=== PATIENT | male | born 1940 | race Caucasian/White ===

== ENCOUNTER 2021-11-21 09:04 | Outpatient (CLI) | payer MEDICARE, OTHER, SELFPAY ==
--- NOTE | 2021-11-21 09:00 | CRLHL7_ITS ---
For Patients: As a result of the Century Cures Act, medical imaging exams and procedure reports are released immediately into your electronic medical record. You may view this report before your referring provider. If you have questions, please contact your health care provider. INDICATION: Parkinson`s COMPARISON: none TECHNIQUE: A CT volumetric acquisition was performed of the brain without IV contrast. Please note that all CT scans at this facility use dose modulation, iterative reconstruction, and/or weight-based dosing when appropriate to reduce radiation dose to as low as reasonably achievable. FINDINGS: The CT images reveal a normal appearance of the cerebral ventricles and basal cisterns. There is no evidence of intracranial hemorrhage, tissue infarction or mass effect. The mastoid air cells and middle ear cavities are clear. The calvarium appears intact. There is normal aeration of the visualized paranasal sinuses. Leftward curvature of the nasal septum. Left-sided nasal septal spur. IMPRESSION: Negative head CT. Please note that all CT scans at this facility use dose modulation, iterative reconstruction, and/or weight-based dosing when appropriate to reduce radiation dose to as low as reasonably achievable. Dictated by Rios Leigh MD @ 11/21/2021 10:06:19 AM (Electronically Signed)
== END 2021-11-21 09:05 | disposition home or self-care (01) ==
LOC: CT 09:07
PROVIDERS: PCP Family Medicine
DX: G20 Parkinson's disease (principal)
CPT/HCPCS: 70450

== ENCOUNTER 2021-12-03 10:09 | Outpatient (CLI) | payer MEDICARE, OTHER, SELFPAY ==
[2021-12-03 14:28] LABS: Chloride* 103 mmol/L (96-114); Potassium* 4.8 mmol/L (3.6-5.1); Sodium* 137 mmol/L (135-149)
[2021-12-03 14:31] LABS: Blood Urea Nitrogen* 21 mg/dL (7-30); Carbon Dioxide* 26 mmol/L (20-32); Cholesterol* 100 mg/dL (90-199); Creatinine* 0.7 mg/dL (0.5-1.5); Estimated Glomerular Filt Rate 91 ml/min; Glucose* 99 mg/dL (60-115); Triglycerides* 48 mg/dL (40-149)
[2021-12-03 14:32] LABS: HDL Cholesterol* 53 mg/dL (>=40); LDL Cholesterol Calculated 37 mg/dL (<100)
[2021-12-03 14:59] LABS: PSA Diagnostic* 2.99 ng/mL (0.10-4.00)
== END 2021-12-03 10:10 | disposition home or self-care (01) ==
PROVIDERS: PCP Family Medicine; Visit Provider Family Medicine
DX: Z00.00 Encounter for general adult medical examination without abnormal findings (principal); E78.5 Hyperlipidemia, unspecified; C61 Malignant neoplasm of prostate; Z13.1 Encounter for screening for diabetes mellitus
CPT/HCPCS: 80048; 80061; 84153

== ENCOUNTER 2022-05-22 14:14 | Outpatient (CLI) | payer MEDICARE, SELFPAY | END 2022-05-22 14:15 | disposition home or self-care (01) | LOC: LONREF 14:15 | PROVIDERS: PCP Family Medicine; Visit Provider Family Medicine | DX: Z01.818 Encounter for other preprocedural examination (principal) | CPT/HCPCS: 80048 ==

== ENCOUNTER 2022-05-27 09:34 | Outpatient (CLI) | payer MEDICARE, SELFPAY ==
[2022-05-27 14:38] LABS: SARS PCR* Negative SARS-CoV-2 (Negative)
== END 2022-05-27 09:35 | disposition home or self-care (01) ==
LOC: LONREF 09:34
PROVIDERS: PCP Family Medicine; Visit Provider Family Medicine
DX: Z20.822 Contact with and (suspected) exposure to COVID-19 (principal); Z01.818 Encounter for other preprocedural examination
CPT/HCPCS: 87635

== ENCOUNTER 2022-12-23 08:06 | Outpatient (CLI) | payer MEDICARE, OTHER, SELFPAY | END 2022-12-23 08:07 | disposition home or self-care (01) | PROVIDERS: PCP Family Medicine; Visit Provider Family Medicine | DX: E78.5 Hyperlipidemia, unspecified (principal); C61 Malignant neoplasm of prostate | CPT/HCPCS: 80061; 84153 ==

== ENCOUNTER 2023-08-25 09:59 | Emergency (ER) | payer MEDICARE, OTHER, SELFPAY ==
[2023-08-25 10:02] VITALS: BP 123/56; PULSE 64; RESP 16; TEMP 36.8; O2SAT 99; BMI 26.6
--- NOTE | 2023-08-25 10:19 | ED_ITS ---
HPI - General Adult General Chief complaint: Abdominal Pain Stated complaint: constipation, stomach pain Time Seen by Provider: 08/25/23 10:18 History of Present Illness HPI narrative: patient has Parkinson's and fell 2 weeks ago and noted a bruise on the side right side RLQ. think fractured 2 ribs. has not been able to poop and poor appetite. 4 days for last BM and stomach hurts and eating raspberry Jello and some Mac and Cheese. taken Miralax and a lot of other things to help in this area. 83-year-old man presenting to the emergency department with concern abdominal pain. Underlying history of Parkinson's. All to maybe 3 weeks ago and they noted a bruise on the right lower anterolateral chest where they think probably had fractured ribs. Not been having trouble breathing. Increased burning pain in the epigastrium as demonstrated. Does take Prilosec with a history of GERD. Does struggle with constipation bed enough for GI to initiate Linzess which was done about 3 weeks ago. Discontinued for 5 days ago with this burning and familiar pain though thought that it might be related to Linzess. Has not had a bowel movement for at least 4 days. No fever. Is passing gas. Is not vomiting but a little nauseated right now. What was of concern also is that bruise settled up below the area of injury in the right side though was noted 2 or 3 weeks later and thought maybe this is surprisingly late. Does have a history of spastic bladder as well and BPH and prostate cancer. Have been taking MiraLax over the last few days. Has been passing gas. Related Data Home Medications ?Medication ?Instructions ?Recorded ?Confirmed acalabrutinib 100 mg capsule 100 mg PO BID 10/02/21 08/25/23 (Calquence) carbidopa ER 50 mg-levodopa 200 mg 1 tab PO TID 10/02/21 08/25/23 tablet,extended release cetirizine 10 mg tablet 10 mg PO DAILY 10/02/21 08/25/23 multivitamin (Multiple Vitamins 1 tab PO QAM 10/02/21 07/08/23 tablet) Previous Rx's ?Medication ?Instructions ?Recorded citalopram 20 mg tablet 20 mg PO DAILY #90 tabs 12/23/22 finasteride 5 mg tablet 5 mg PO DAILY #90 tabs 10/09/23 oxybutynin chloride 5 mg tablet 5 mg PO QDAY #90 tabs 12/23/22 simvastatin 40 mg tablet 40 mg PO .Bedtime #90 tabs 12/23/22 tamsulosin 0.4 mg capsule 0.4 mg PO DAILY #90 caps 12/23/22 linaclotide 72 mcg capsule 72 mcg PO QAM #30 caps 05/30/23 (Linzess) omeprazole 20 mg capsule,delayed 20 mg PO QDAY #90 caps 06/30/23 release tramadol 50 mg tablet See Rx Instructions PO Q6H PRN 07/08/23 pain #40 tabs Allergies Allergy/AdvReac Type Severity Reaction Status Date / Time celecoxib Allergy Mild Hives Verified 08/25/23 10:10 Review of Systems Status of ROS: Reports: 6 or more systems reviewed and unremarkable except as noted in History and below PFSH PFS Surgical History Status post tonsillectomy and adenoidectomy ?Z90.89 - Acquired absence of other organs (ICD-10) Status post right inguinal hernia repair ?Z98.890 - Other specified postprocedural states (ICD-10) ?Z87.19 - Personal history of other diseases of the digestive system (ICD-10) Status post left hip replacement ?Z96.642 - Presence of left artificial hip joint (ICD-10) History of excision of lamina of lumbar vertebra for decompression of spinal cord ?Z98.890 - Other specified postprocedural states (ICD-10) History of arthroscopy of left shoulder ?Z98.890 - Other specified postprocedural states (ICD-10) Social History Narrative: screening for colon cancer- colonoscopy completed on 02/18/19, repeat in 5 years, next due 02/19/24 What is your current living situation?: I presently have a place to live Problems where you live: no known problems In the past 12 months, utilities in danger of being shut off: no In past 12 months, lack of transportation kept you from medical appts, meetings, work, or getting things needed for daily living: no In the past 12 mos, have been you worried that your food would run out before you had money to buy more?: never true In the past 12 mos, the food you bought just didn't last and you didn't have money to buy more?: never true Smoking Status: Never smoker How often does anyone, including family, friends and others, physically hurt you : never How often does anyone, including family, friends and others, insult or talk down to you: never How often does anyone, including family, friends and others, threaten you with harm: never How often does anyone, including family, friends and others, scream or curse at you: never Little interest or pleasure in doing things: not at all Feeling down, depressed, or hopeless: not at all Exam Narrative: Exam Narrative: Pleasant. NAD. Only during exam did I appreciate him to be mildly tachypneic. This settled again when not actually auscultating. Head is atraumatic. Pain to palpation over the back or SI joints. No flank tenderness to percussion. Lungs are clear with breath sounds throughout. Is not splinting. Tender at the right anterolateral lower ribs consistent with some small patch of bruising here. I do not appreciate defect. In the right mid abdomen there is a patch of bruising as well. No hematoma appreciated otherwise. Abdomen is generally soft and appears to be nontender until in palpating in the epigastrium. Bowel sounds are present. No masses appreciated. Lower extremities with left greater than right 1 to 2+ pitting edema. This reportedly is chronic. Well-perfused otherwise. Moving all extremities without difficulty. Hunched over a little bit and moves generally carefully. Has a cane standing by. Const: Vital Signs, click to edit/add: Vital Signs - 24 hr 08/25/23 10:02 Temperature 98.3 F Pulse Rate [Pulse Oximeter] 64 Respiratory Rate 16 Blood Pressure [Ri ght Upper Arm] 123/56 L Pulse Oximetry 99 Oxygen Delivery Me thod Room Air Documenting provider has reviewed patient's vital signs: yes Course Vital Signs Vital signs: Initial Vital Signs Temperature 98.3 F 08/25/23 10:02 Temperature Source Temporal Artery Scan 08/25/23 10:02 Pulse Rate 64 08/25/23 10:02 Respiratory Rate 16 08/25/23 10:02 Blood Pressure 123/56 L 08/25/23 10:02 Blood Pressure Mean 78 08/25/23 10:02 Blood Pressure Position Sitting 08/25/23 10:02 Pulse Oximetry 99 08/25/23 10:02 Oxygen Delivery Method Room Air 08/25/23 10:02 Vital Signs Temperature 98.3 F 08/25/23 10:02 Pulse Rate 64 08/25/23 10:02 Respiratory Rate 16 08/25/23 10:02 Blood Pressure 123/56 L 08/25/23 10:02 Pulse Oximetry 99 08/25/23 10:02 Oxygen Delivery Method Room Air 08/25/23 10:02 Temperature 98.3 F 08/25/23 10:02 Pulse Rate 64 08/25/23 10:02 Respiratory Rate 16 08/25/23 10:02 Blood Pressure 123/56 L 08/25/23 10:02 Pulse Oximetry 99 08/25/23 10:02 Oxygen Delivery Method Room Air 08/25/23 10:02 Medications Administered Medications: Discontinued Medications Generic Name Dose Route Start Last Admin Trade Name Freq PRN Reason Stop Dose Admin Sodium Chloride 500 mls @ 500 mls/hr 08/25/23 10:32 08/25/23 12:01 0.9 % Sodium Chloride 500 Ml IV 08/25/23 11:31 Infused .Q1H ONE Infusion Lidocaine 1 patch 08/25/23 10:36 08/25/23 10:45 Lidocaine 5% Patch TRANSDERMA 08/25/23 10:37 1 patch ONCE ONE Administration Protocol Lidocaine/Aluminum/Magnesium/Simeth 30 ml 08/25/23 10:32 08/25/23 11:05 Gi Cocktail (Visc Lido/Antacid) 30 Ml PO 08/25/23 10:33 30 ml ONCE ONE Administration Ondansetron HCl 4 mg 08/25/23 10:32 08/25/23 11:05 Ondansetron 2 Mg/Ml Inj IVP 08/25/23 10:33 4 mg ONCE ONE Administration Medical Decision Making MDM Narrative Medical decision making narrative: Abdomen generally appears to be benign. Likely constipation and contributing to symptoms here today. Place a lidocaine patch the right side. I am not sure that imaging would benefit provided labs are normal. Will check liver enzymes if labs in general are off would consider more extensive imaging. I do not think this is likely a large hematoma intra-abdominally that is mobilized. Abdomen otherwise is benign. Check for degree of constipation. Trial of GI cocktail. One-view abdominal x-ray reviewed by me does not show any obstructive pattern. There is moderate plus stool throughout the abdomen. I do not see any displaced rib fracture that would have contributed to liver injury in the area of the bruise. On reassessment as far as the epigastric burning symptoms go, is back to normal; resolved. Reviewing that has been taking 20 mg of Prilosec for years. Does have famotidine available and can be helpful last taken about 4 days ago. Discussed with pharmacy that while possible, not terribly likely that Linzess would contribute to this burning in his epigastrium. Urinalysis returns with nitrite positive urine and otherwise bilirubin which I would attribute to mobilization of the hematoma likely present prior. Total bili is also elevated and looks to be primarily indirect. Renal function looks good. Transaminases are normal. Reviewing symptoms again emphasis is made of weakness. With normal hemoglobin upon review of records and baseline, as well I wonder if this nitrite positive urine is actually significant in spite of no red or white cells identified on microscopy. Perhaps it would be prudent to treat. See patient discharge plan for further discussion/plan Medical Records Medical records reviewed: Yes I reviewed the patient's medical records Lab Data Lab results reviewed: Yes I reviewed the patient's lab results Labs: Lab Results 08/25/23 08/25/23 Range/Units 10:35 11:01 WBC 4.50 (4.50-11.00) K/uL RBC 3.84 L (4.30-5.90) m/uL Hgb 12.4 L (13.5-17.5) gm/dL Hct 38.8 (37.0-53.0) % MCV 101 H (80-100) fL MCH 32 (26-34) pg MCHC 32 (32-36) gm/dL RDW Coeff of John 12.6 (11.5-15.5) % Plt Count 76 L (140-440) K/uL Neut % (Auto) 46.0 (42.0-72.0) % Lymph % (Auto) 44.9 H (20-44) % [place] % (Auto) 8.7 (0.0-11.0) % Eos % (Auto) 0.4 (0.0-7.0) % Baso % (Auto) 0.0 (0.0-3.0) % Neut # (Auto) 2.07 (1.7-7.0) K/uL Lymph # (Auto) 2.00 (0.90-2.90) K/uL [place] # (Auto) 0.40 (0.00-0.90) K/UL Eos # (Auto) 0.02 (0.00-0.50) K/uL Baso # (Auto) 0.00 (0.00-0.30) K/uL Abs Immat Gran (auto) 0.00 (0.00-0.30) K/uL Imm/Tot Granulo (auto) 0.0 % Sodium 135 (135-149) mmol/L Potassium 4.7 (3.6-5.1) mmol/L Chloride 102 (96-114) mmol/L Carbon Dioxide 29 (20-32) mmol/L Anion Gap 4 L (7-15) mEq/L BUN 20 (7-30) mg/dL Creatinine 0.5 (0.5-1.5) mg/dL Estimated Creat Clear 46.98 Estimated GFR 100 ml/min Glucose 96 (60-115) mg/dL Calcium 8.8 (8.4-10.6) mg/dL Total Bilirubin 3.1 H (0.1-1.5) mg/dL Direct Bilirubin 0.3 (0.0-0.5) mg/dL AST 19 (12-35) U/L ALT 5 (4-50) U/L Alkaline Phosphatase 91 (40-150) U/L C-Reactive Protein < 0.5 L (0.5-1.0) mg/dL Total Protein 6.5 (6.0-8.3) g/dL Albumin 4.8 (3.3-5.0) g/dL Urine Color Brown A (Yellow) Urine Appearance Clear (Clear) Urine pH 6.5 (5.0-8.5) Ur Specific [place] >= 1.030 (1.000-1.030) Urine Protein Trace A (Negative) Urine Glucose (UA) Negative (Negative) Urine Ketones 1+ A (Negative) Urine Blood Negative (Negative) Urine Nitrite Positive A (Negative) Urine Bilirubin Negative (Negative) Urine Urobilinogen >=8.0 A (0.2-1.0) Ur Leukocyte Esterase Negative (Negative) Urine RBC 0-2 (0-2) Urine WBC 0-2 (0-5) Ur Squamous Epith Cells None (None-Few) Urine Bacteria Few A (None) Discharge Plan Discharge Clinical Impression: Constipation, Dyspepsia, Chronic GERD, Contusion, Weakness Patient Disposition: Home w/ Parent or Adult Condition: Stable Additional Instructions: As discussed, nitrate in urine is often an infection until proven otherwise. This combined with your weakness is concerning for potential urinary tract infection. It seems prudent to initiate antibiotics pending urine culture results. Cephalexin from [facility]. In the meantime, stay well-hydrated. I would increase your MiraLax dosing to 2- 3 doses a day perhaps. If you are having hard stool/straining had stool consider placing an enema repeating an hour if no good result or at least placing a suppository overnight. I would restart your Linzess at this time. Radiology has had a look at your x-ray and agree with moderate stool being present but no other acute findings. Consider taking famotidine daily as discussed over the next week or 2. For breakthrough epigastric burning, might try also taking Pepto or other antacid/anti-gas liquid. Return/be seen for a increasing persistent weakness, marked increase in persistent abdominal pain, fever. Follow-up in clinic tomorrow as planned. If you think this lidocaine patch is helpful, can purchase more [id number]. Prescriptions: No Action carbidopa-levodopa 50-200 mg tablet extended release 1 tab PO TID cetirizine 10 mg tablet 10 mg PO DAILY multivitamin [Multiple Vitamins] Tablet 1 tab PO QAM Calquence 100 mg capsule 100 mg PO BID tramadol 50 mg tablet See Rx Instructions PO Q6H PRN (Reason: pain) Qty: 40 1RF Rx Instructions: 1-2 tabs Q6H prn orally every 6 hours PRN; simvastatin 40 mg tablet 40 mg PO .Bedtime Qty: 90 3RF oxybutynin chloride 5 mg tablet 5 mg PO QDAY Qty: 90 3RF tamsulosin 0.4 mg capsule 0.4 mg PO DAILY Qty: 90 3RF citalopram 20 mg tablet 20 mg PO DAILY Qty: 90 3RF finasteride 5 mg tablet 5 mg PO DAILY Qty: 90 3RF Linzess 72 mcg capsule 72 mcg PO QAM Qty: 30 5RF Hold Instructions: burning in stomach..stopped 3 days ago omeprazole 20 mg capsule,delayed release(DR/EC) 20 mg PO QDAY Qty: 90 3RF Follow Up/Referrals: Terrell Conner MD [Primary Care Provider] - Stand Alone Forms: [facility] Info Instructions
--- NOTE | 2023-08-25 10:34 | CRLHL7_ITS ---
For Patients: As a result of the Cures Act, medical imaging exams and procedure reports are released immediately into your electronic medical record. You may view this report before your referring provider. If you have questions, please contact your health care provider. Indication: Stomach pain and constipation Technique: Abdomen 1 view, 2 films Comparison: None Findings/Impression: Bowel: No definite evidence of obstruction with a moderate amount of stool within the colon. Soft tissues: Multiple phleboliths within the pelvis and soft tissues. Bones: Status post left hip replacement with mild adjacent heterotopic ossification. Dictated by Manpreet Davalos MD @ 08/25/2023 12:34:00 PM (Electronically Signed)
[2023-08-25] MEDS: LIDOCAINE 5% PATCH 1 PATCH TRANSDERMA (10:45)
[2023-08-25 10:57] LABS: Appearance Urine Clear (Clear); Bilirubin Urine Negative (Negative); Blood Urine Negative (Negative); Color Urine Brown (Yellow); Glucose Urine Negative (Negative); Ketones Urine 1+ (Negative); Leukocyte Esterase Urine Negative (Negative); Nitrite Urine Positive (Negative); Protein Urine Trace (Negative); Specific Gravity Urine >= 1.030 (1.000-1.030); Urobilinogen Urine >=8.0 (0.2-1.0); pH Urine 6.5 (5.0-8.5)
[2023-08-25] MEDS: ONDANSETRON 2 MG/ML inj 4 MG IVP (11:05)
[2023-08-25] MEDS: GI COCKTAIL (VISC LIDO/ANTACID) 30 ML PO (11:05)
[2023-08-25] MEDS: 0.9 % SODIUM CHLORIDE 500 ML 500 ML IV (11:05)
[2023-08-25 11:09] LABS: Eosinophils Absolute Auto 0.02 K/uL (0.00-0.50); Eosinophils Percent Auto 0.4 % (0.0-7.0); Hematocrit 38.8 % (37.0-53.0); Hemoglobin* 12.4 gm/dL (13.5-17.5); Lymphocytes Percent Auto 44.9 % (20-44); Mean Corpuscular HGB Conc 32 gm/dL (32-36); Mean Corpuscular Hemoglobin 32 pg (26-34); Mean Corpuscular Volume 101 fL (80-100); Monocytes Percent Auto 8.7 % (0.0-11.0); Neutrophils Absolute Auto 2.07 K/uL (1.7-7.0); Platelet Count* 76 K/uL (140-440); RDW Coefficient of Variation % 12.6 % (11.5-15.5); Red Blood Count 3.84 m/uL (4.30-5.90)
[2023-08-25 11:11] LABS: Slide Review Reflex No
[2023-08-25 11:23] LABS: Chloride* 102 mmol/L (96-114); Potassium* 4.7 mmol/L (3.6-5.1); Sodium* 135 mmol/L (135-149)
[2023-08-25 11:24] LABS: Albumin* 4.8 g/dL (3.3-5.0)
[2023-08-25 11:26] LABS: Creatinine* 0.5 mg/dL (0.5-1.5); Est. Creatinine Clearance* 46.98; Estimated Glomerular Filt Rate 100 ml/min
[2023-08-25 11:27] LABS: Alkaline Phosphatase* 91 U/L (40-150); Anion Gap 4 mEq/L (7-15); Aspartate Amino Transferase* 19 U/L (12-35); Bilirubin Direct* 0.3 mg/dL (0.0-0.5); Bilirubin Total* 3.1 mg/dL (0.1-1.5); Blood Urea Nitrogen* 20 mg/dL (7-30); Calcium* 8.8 mg/dL (8.4-10.6); Carbon Dioxide* 29 mmol/L (20-32); Glucose* 96 mg/dL (60-115); Total Protein* 6.5 g/dL (6.0-8.3)
[2023-08-25 11:28] LABS: Alanine Aminotransferase* 5 U/L (4-50)
[2023-08-25 11:29] LABS: Bacteria Urine Few; RBC Urine 0-2 (0-2); WBC Urine 0-2 (0-5)
[2023-08-25 11:30] LABS: C Reactive Protein* < 0.5 mg/dL (0.5-1.0)
== END 2023-08-25 13:09 | disposition home or self-care (01) ==
PROVIDERS: Emergency Provider Family Medicine; PCP Family Medicine
DX: K59.00 Constipation, unspecified (principal); R10.13 Epigastric pain; K21.9 Gastro-esophageal reflux disease without esophagitis; S20.211A Contusion of right front wall of thorax, initial encounter; R53.1 Weakness
CPT/HCPCS: 36415; 74018; 80048; 80076; 81001; 85025; 86140; 87086; 96374; 99284; A9270; J2405; J7030

== ENCOUNTER 2023-08-26 14:37 | Outpatient (CLI) | payer MEDICARE, OTHER, SELFPAY | END 2023-08-26 14:38 | disposition home or self-care (01) | PROVIDERS: PCP Family Medicine; Visit Provider Family Medicine | DX: R63.4 Abnormal weight loss (principal); Z13.21 Encounter for screening for nutritional disorder | CPT/HCPCS: 82607; 84443 ==

== ENCOUNTER 2023-09-17 10:45 | Outpatient (RCR) | payer MEDICARE, OTHER, SELFPAY | END 2024-01-15 23:59 | disposition home or self-care (01) | PROVIDERS: PCP Family Medicine; Visit Provider Orthopaedic Surgery | DX: M48.061 Spinal stenosis, lumbar region without neurogenic claudication (principal); Z51.89 Encounter for other specified aftercare | CPT/HCPCS: 97110; 97112; 97162 ==

== ENCOUNTER 2023-11-14 13:53 | Outpatient (CLI) | payer MEDICARE, OTHER, SELFPAY ==
--- NOTE | 2023-11-14 14:00 | CRLHL7_ITS ---
For Patients: As a result of the 21st Century Cures Act, medical imaging exams and procedure reports are released immediately into your electronic medical record. You may view this report before your referring provider. If you have questions, please contact your health care provider. INDICATION: Left lower quadrant pain chronic constipation TECHNIQUE: CT abdomen and pelvis with 74 mL Isovue 370 COMPARISON: None. FINDINGS: Lower chest: Calcified hilar nodes coronary artery calcification basilar atelectasis few scattered tiny nodules example 3 millimeter left lower lobe nodule / right middle lobe granuloma a few additional micro nodules 6 millimeter perifissural nodule left lower lobe 05/11. Liver: Normal in size and attenuation. No suspicious masses. Gallbladder and bile ducts: No stones or inflammation. No biliary dilatation. Pancreas: Unremarkable. No mass or inflammation. Spleen: Splenomegaly measuring 17 cm Adrenal glands: Normal in size. No nodules. Kidneys: Too small to characterize low-attenuation lesion left kidney GI tract: Large amount of stool within the colon the bowel appears unremarkable no obstruction Vasculature: Abdominal aorta is normal in caliber. Lymph nodes: No lymphadenopathy. Peritoneum/Abdominal Wall: Unremarkable. No sign of mass or infiltration. No free air or significant free fluid. Pelvis: Minimally prominent prostate gland Bones left hip arthroplasty with streak artifact. No suspicious bony lesions. IMPRESSION: 1. Splenomegaly measuring 17 cm. No additional adenopathy seen. 2. Small pulmonary nodules micronodules measuring up to 6 millimeters lower lobes recommend follow-up per Fleischner society guidelines. 3. No acute findings abdomen or pelvis. Large amount of stool within the colon could represent constipation. FLE[employer]CH[employer] SOC[employer]ETY GUIDELINES - SOLID NODULES: SINGLE LOW RISK - nodule less than 6 mm: No routine follow-up. - nodule 6-8 mm: CT at 6-12 months, then consider CT at 18-24 months. - nodule greater than 8 mm: Consider CT at 3 months, PET/CT or tissue sampling. SINGLE HIGH RISK - nodule less than 6 mm: Optional CT at 12 months. - nodule 6-8 mm: CT at 6-12 months, then CT at 18-24 months. - nodule greater than 8 mm: Consider CT at 3 months, PET/CT or tissue sampling. MULTIPLE LOW RISK - nodule less than 6 mm: No routine follow-up. - nodule 6-8 mm: CT at 3-6 months, then consider CT at 18-24 months. - nodule greater than 8 mm: CT at 3-6 months, then consider CT at 18-24 months. MULTIPLE HIGH RISK - nodule less than 6 mm: Optional CT at 12 months. - nodule 6-8 mm: CT at 3-6 months, then at 18-24 months. - nodule greater than 8 mm: CT at 3-6 months, then at 18-24 months. Please note that all CT scans at this facility use dose modulation, iterative reconstruction, and/or weight-based dosing when appropriate to reduce radiation dose to as low as reasonably achievable. Dictated by Emilia Palomares MD @ 11/17/2023 1:24:01 PM (Electronically Signed)
[2023-11-14 14:36] LABS: Creatinine* 0.7 mg/dL (0.5-1.5); Estimated Glomerular Filt Rate 90 ml/min
== END 2023-11-14 13:54 | disposition home or self-care (01) ==
LOC: CT 13:54
PROVIDERS: PCP Family Medicine
DX: R10.32 Left lower quadrant pain (principal); R16.1 Splenomegaly, not elsewhere classified; R91.8 Other nonspecific abnormal finding of lung field
CPT/HCPCS: 36415; 74177; 82565; Q9967

== ENCOUNTER 2024-12-24 12:13 | Emergency (ER) | payer MEDICARE, OTHER, SELFPAY ==
[2024-12-24 12:15] VITALS: BP 121/68; PULSE 65; RESP 18; TEMP 36.2; O2SAT 96; BMI 28.3
--- NOTE | 2024-12-24 12:37 | ED.GENADULT ---
HPI - General Adult General Chief complaint: Back Injury/Pain Stated complaint: Lower back pain Time Seen by Provider: 12/24/24 12:23 History of Present Illness HPI narrative: Patient presents to the emergency department complaining of back pain. Patient states this has been going on for about 2 weeks. Patient has been seen for this and was given tramadol which has not provided any relief. Pain is in the middle of his back. 84-year-old man presenting to the emergency departmentWith concern of flare of low back pain. Nonradicular. Does also have prostate cancer treated with cryotherapy. Was seen 2 days ago in clinic and received a refill of tramadol. Changes his relief flared to an intolerable level over the last couple of days. The tramadol has not helped. Any transition causes a great deal of pain. History of low level lumbar spondylolisthesis. Nonradiating pain. History of partial laminectomy. Included here is 2019 lumbar MRI. See below. 06/02/2019 lumbar MRI EXAM: MR LUMBAR SPINE WITHOUT CONTRAST 1.5T CLINICAL INFORMATION: 78 years old Male with Parkinson's disease, bilateral leg weakness TECHNICAL INFORMATION: T1, T2, and STIR sagittal, coronal T2 and T1 and T2 axial sections at selected levels. Contrast: None. Sedation: None. COMPARISON/CORRELATION: None. DIAGNOSTIC IMAGING REPORT MR NUMBER: [id number] PT NAME: LORNEJINNY Amira GAYB: 1940 MD: Rony Correia DO DATE: Draft REG CLI cc: Rony Correia DO; Nathen Conner MD~ INTERPRETATION: Numbering: Last fully formed disc space is designated L5-S1. Spinal Cord: The distal cord and conus demonstrates normal signal, terminating at L1. Bones: No acute fracture or osseous destructive lesion. No spondylolysis. Marrow signal is within normal limits. Soft tissues: Moderate to marked diffuse dorsal paraspinal muscular fatty infiltration/atrophy. Moderate partially imaged gluteal muscular fatty infiltration/atrophy. L5-S1: Mild disc degeneration, annular bulge and moderate left greater than right facet degeneration. No central stenosis. Mild left subarticular and right foraminal stenosis with a right foraminal directed 4 mm synovial cyst without neural impingement. L4-5: Moderate disc degeneration, grade 1 (5 mm) degenerative spondylolisthesis with moderate to advanced right greater than left facet degeneration and previous left laminotomy. Unroofing of the disc/left posterolateral to foraminal 4 to 5 mm protrusion versus granulation tissue contributing to mild central canal narrowing. Mild left subarticular stenosis without descending neural impingement. Moderate foraminal stenosis with exiting left greater than right L4 ganglionic contact/mild impingement. L3-4: Mild disc degeneration, grade 1 (2 to 3 mm) degenerative spondylolisthesis with moderate to advanced facet degeneration. Mild central stenosis without descending neural impingement. Mild left greater than right foraminal narrowing. L2-3: Mild disc degeneration, retrolisthesis and annular bulge with mild hypertrophic facet degeneration. No central stenosis. Mild subarticular and right foraminal stenosis with a right far lateral 2 to 3 mm protrusion without impingement. L1-2: Mild/moderate disc degeneration, annular bulge and mild hypertrophic facet degeneration. No central stenosis or neural impingement. Minimal foraminal narrowing. T12-L1: Moderate disc degeneration without central stenosis. DIAGNOSTIC IMAGING REPORT MR NUMBER: [id number] PT NAME: JINNY PRADHAN DOB: 1940 MD: Rony Correia DO DATE: Draft REG CLI cc: Rony Correia DO; Nathen Conner MD~ Other: No abnormality of the visualized structures. Susceptibility artifact from a left hip prosthesis. CONCLUSION: Multilevel lumbar spondylosis in lordotic alignment, previous left L4-5 laminotomy and the following specific findings: 1. L4-5 grade 1 degenerative spondylolisthesis with mild central canal narrowing and moderate left greater than right foraminal stenosis with L4 ganglionic contact/mild impingement. Small left posterolateral protrusion versus epidural fibrosis partially effacing the normal perineural fat in the left subarticular recess. This could be further evaluated with contrast-enhanced imaging if clinically indicated. 2. L3-4 grade 1 degenerative spondylolisthesis with mild central and left greater than right foraminal narrowing without neural impingement. 3. Additional hypertrophic facet degeneration without spondylolisthesis is moderate left greater than right L5-S1 and mild L2-3 and L1-2. 4. Moderate to marked dorsal paraspinal muscular fatty infiltration, which could relate to age-related cervical pain year. Other etiologies including muscular dystrophy or myopathy are less favored given the patient age in the absence of clinical history. KIMMY Related Data Home Medications ?Medication ?Instructions ?Recorded ?Confirmed acalabrutinib 100 mg capsule 100 mg PO BID 10/02/21 12/24/24 (Calquence) carbidopa ER 50 mg-levodopa 200 mg 1 tab PO TID 10/02/21 12/24/24 tablet,extended release multivitamin (Multiple Vitamins 1 tab PO QAM 10/02/21 12/24/24 tablet) furosemide 20 mg tablet 20 mg PO QAM 12/22/24 12/24/24 Previous Rx's ?Medication ?Instructions ?Recorded oxybutynin chloride 5 mg tablet 5 mg PO QDAY #90 tabs 02/11/24 omeprazole 20 mg capsule,delayed 20 mg PO QDAY #90 caps 04/29/24 release citalopram 20 mg tablet 20 mg PO DAILY #90 tabs 12/13/24 finasteride 5 mg tablet 5 mg PO DAILY #90 tabs 12/13/24 simvastatin 40 mg tablet 40 mg PO .Bedtime #90 tabs 12/13/24 tamsulosin 0.4 mg capsule 0.4 mg PO DAILY #90 caps 12/13/24 plecanatide 3 mg tablet (Trulance) 3 mg PO BID #180 tabs 12/22/24 tramadol 50 mg tablet 50 mg PO Q6H PRN pain #60 tabs 12/22/24 Allergies Allergy/AdvReac Type Severity Reaction Status Date / Time celecoxib Allergy Mild Hives Verified 12/24/24 12:19 Review of Systems Status of ROS: Reports: 6 or more systems reviewed and unremarkable except as noted in History and below [facility] Medical History Edema ?R60.9 - Edema, unspecified (ICD-10) Parkinson's disease ?G20 - Parkinson's disease (ICD-10) Chronic lymphocytic leukemia ?C91.10 - Chronic lymphocytic leukemia of B-cell type not having achieved remission (ICD-10) 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, unspecified (ICD-10) Hyperlipidemia ?E78.5 - Hyperlipidemia, unspecified (ICD-10) Obstructive sleep apnea syndrome ?G47.33 - Obstructive sleep apnea (adult) (pediatric) (ICD-10) Malignant neoplasm of prostate ?C61 - Malignant neoplasm of prostate (ICD-10) Gastroesophageal reflux disease ?K21.9 - Gastro-esophageal reflux disease without esophagitis (ICD-10) BPH (benign prostatic hyperplasia) ?N40.0 - Benign prostatic hyperplasia without lower urinary tract symptoms (ICD-10) Constipation ?K59.00 - Constipation, unspecified (ICD-10) Spastic bladder ?N32.89 - Other specified disorders of bladder (ICD-10) Spondylolisthesis, lumbar region ?M43.16 - Spondylolisthesis, lumbar region (ICD-10) Chronic back pain ?M54.9 - Dorsalgia, unspecified (ICD-10) ?G89.29 - Other chronic pain (ICD-10) Anxiety ?F41.9 - Anxiety disorder, unspecified (ICD-10) Melanoma of upper arm ?C43.60 - Malignant melanoma of unspecified upper limb, including shoulder (ICD-10) Seasonal allergic rhinitis ?J30.2 - Other seasonal allergic rhinitis (ICD-10) Pain in left thigh ?M79.652 - Pain in left thigh (ICD-10) Diverticulosis of intestine ?K57.90 - Diverticulosis of intestine, part unspecified, without perforation or abscess without bleeding (ICD-10) Adenomatous polyp of colon ?D12.6 - Benign neoplasm of colon, unspecified (ICD-10) Toe infection ?L08.9 - Local infection of the skin and subcutaneous tissue, unspecified (ICD-10) Rib fracture ?S22.39XA - Fracture of one rib, unspecified side, initial encounter for closed fracture (ICD-10) Abnormal weight loss ?R63.4 - Abnormal weight loss (ICD-10) Surgical History Status post tonsillectomy and adenoidectomy ?Z90.89 - Acquired absence of other organs (ICD-10) Status post right inguinal hernia repair ?Z98.890 - Other specified postprocedural states (ICD-10) ?Z87.19 - Personal history of other diseases of the digestive system (ICD-10) Status post left hip replacement ?Z96.642 - Presence of left artificial hip joint (ICD-10) History of excision of lamina of lumbar vertebra for decompression of spinal cord ?Z98.890 - Other specified postprocedural states (ICD-10) History of arthroscopy of left shoulder ?Z98.890 - Other specified postprocedural states (ICD-10) Social History Narrative: screening for colon cancer- colonoscopy completed on 02/18/19, repeat in 5 years, next due 02/19/24 What is your current living situation?: I presently have a place to live Problems where you live: no known problems In the past 12 months, utilities in danger of being shut off: no In past 12 months, lack of transportation kept you from medical appts, meetings, work, or getting things needed for daily living: no In the past 12 mos, have been you worried that your food would run out before you had money to buy more?: never true In the past 12 mos, the food you bought just didn't last and you didn't have money to buy more?: never true Smoking Status: Never smoker Do you use any of these nicotine containing products: None How often do you have a drink containing alcohol: 4 or more times a week How many standard drinks containing alcohol do you have on a typical day: 1 or 2 AUDIT-C Alcohol total score: 4 Non-prescribed substance use: marijuana (any form) How often does anyone, including family, friends and others, physically hurt you: never How often does anyone, including family, friends and others, insult or talk down to you: never How often does anyone, including family, friends and others, threaten you with harm: never How often does anyone, including family, friends and others, scream or curse at you: never Exam Narrative: Exam Narrative: Intermittently to sore to palpation in the mid low back/upper lumbar spine centrally. Do not see any swelling. There are some parallel well-healed vertical surgical scars consistent with prior (partial) laminectomy. Clearly extremely comfortable and hesitant to extension or to go to sitting to the bed. Otherwise breathing easily. Heart in regular rate and rhythm. Const: Vital Signs, click to edit/add: Vital Signs - 24 hr 12/24/24 12:15 12/24/24 14:01 12/24/24 15:15 Temperature 97.2 F L Pulse Rate [Right Pulse Oximeter] 65 61 61 Respiratory Rate 18 16 16 Blood Pressure [Ri ght Upper Arm] 121/68 117/62 118/55 L Pulse Oximetry 96 98 93 Oxygen Delivery Me thod Room Air Room Air Room Air Documenting provider has reviewed patient's vital signs: yes Course Vital Signs Vital signs: Initial Vital Signs Temperature 97.2 F L 12/24/24 12:15 Temperature Source Temporal Artery Scan 12/24/24 12:15 Pulse Rate 65 12/24/24 12:15 Pulse Rhythm Regular 12/24/24 12:15 Pulse Strength 3+ Normal 12/24/24 12:15 Respiratory Rate 18 12/24/24 12:15 Blood Pressure 121/68 12/24/24 12:15 Blood Pressure Mean 85 12/24/24 12:15 Blood Pressure Position Sitting 12/24/24 12:15 Pulse Oximetry 96 12/24/24 12:15 Oxygen Delivery Method Room Air 12/24/24 12:15 Vital Signs Temperature 97.2 F L 12/24/24 12:15 Pulse Rate 65 12/24/24 12:15 Respiratory Rate 18 12/24/24 12:15 Blood Pressure 121/68 12/24/24 12:15 Pulse Oximetry 96 12/24/24 12:15 Oxygen Delivery Method Room Air 12/24/24 12:15 Temperature 97.2 F L 12/24/24 12:15 Pulse Rate 61 12/24/24 15:15 Respiratory Rate 16 12/24/24 15:15 Blood Pressure 118/55 L 12/24/24 15:15 Pulse Oximetry 93 12/24/24 15:15 Oxygen Delivery Method Room Air 12/24/24 15:15 Medications Administered Medications: Discontinued Medications Generic Name Dose Route Start Last Admin Trade Name Marioq PRN Reason Stop Dose Admin Lidocaine 1 patch 12/24/24 12:59 12/24/24 13:22 Lidocaine 5% Patch TRANSDERMA 12/24/24 13:00 1 patch ONCE ONE Administration Protocol Oxycodone/Acetaminophen 2 tab 12/24/24 12:59 12/24/24 13:23 Oxycodone/Apap 5-325 Tablet PO 12/24/24 13:00 2 tab ONCE ONE Administration Medical Decision Making MDM Narrative Medical decision making narrative: Appears to been sometime since imaging has been done. No red flags but there is is history prostate cancer. Given degree of discomfort perhaps some new imaging might be beneficial. I would suspect facet arthropathy is contributing primarily to his pain. There may be new spontaneous compression fractures as well. Think x-ray imaging would be of low yield. MRI I think less indicated and I am not sure is actually available at this time. Placing lidocaine patch and given 2 tabs of Percocet. Maybe can bring his discomfort to a tolerable level and assess degree of sedation that might be present if these medications were to be taken intermittently. More concerning in the setting of Parkinson's I think On reassessment improved, transitioning easier with a lidocaine patch and 2 tabs of 5/325 Percocet. Admittedly is little tired but comfortable enough to take a nap. Does not appear to be overly sedated. I did independently review CT imaging of the lumbar spine. I do not appreciate any acute abnormality. No lytic lesions evident. Radiology over-read below INDICATION: Severe mid to lower back pain, history of prostate/skin cancers TECHNIQUE: CT lumbar spine without contrast. COMPARISON: CT abdomen and pelvis with contrast 11/14/2023, MRI lumbar spine 06/02/2019. FINDINGS: Vertebrae: Grade 1 anterolisthesis of L4 on L5. Trace anterolisthesis of L3 on L4. Mild retrolisthesis of L2 on L3 and L5 on S1. No acute fracture or suspicious osseous lesion. The bones appear demineralized. Discs and facet joints: There is multilevel degenerative disc disease greatest and moderate at L1-L2 and L2-L3 with vacuum disc phenomenon. There is severe multilevel facet arthropathy most pronounced from L3-L4 to L5-S1. Extraspinal findings: Moderate atherosclerotic calcification. Suspected splenomegaly, partially imaged. IMPRESSION: 1. No acute osseous abnormality or suspicious osseous lesion within the lumbar spine. 2. Multilevel degenerative disc disease and facet arthropathy as above. Please note that all CT scans at this facility use dose modulation, iterative reconstruction, and/or weight-based dosing when appropriate to reduce radiation dose to as low as reasonably achievable. Dictated by Aliyah Hull MD @ 12/24/2024 2:00:41 PM See patient discharge plan for further discussion I am happy you are feeling better. If you think this lidocaine patch is helpful, you can purchase more [id number]. Remember that opiates are sedating. Also can be constipating. On the days that you might be taking an opiate I would also take 1-2 tabs of senna-containing product. As discussed am providing you with some temporary Percocet from [facility]. Otherwise a prescription of prednisone as well. Either may be combined with ibuprofen or naproxen. I wonder if you might benefit from some facet injections in the future? Can discuss with Dr. Conner if that might be recommended? Dr. Nieto does them locally. Discharge Plan Discharge Clinical Impression: Acute exacerbation of chronic low back pain Patient Disposition: Home w/ Parent or Adult Condition: Improved Additional Instructions: I am happy you are feeling better. If you think this lidocaine patch is helpful, you can purchase more [id number]. Remember that opiates are sedating. Also can be constipating. On the days that you might be taking an opiate I would also take 1-2 tabs of senna-containing product. As discussed am providing you with some temporary Percocet from [facility]. Otherwise a prescription of prednisone as well. Either may be combined with ibuprofen or naproxen. I wonder if you might benefit from some facet injections in the future? Can discuss with Dr. Conner if that might be recommended? Dr. Nieto does them locally. Prescriptions: No Action carbidopa-levodopa 50-200 mg tablet extended release 1 tab PO TID multivitamin [Multiple Vitamins] Tablet 1 tab PO QAM Calquence 100 mg capsule 100 mg PO BID furosemide 20 mg tablet 20 mg PO QAM Trulance 3 mg tablet 3 mg PO BID Qty: 180 0RF tramadol 50 mg tablet 50 mg PO Q6H PRN (Reason: pain) Qty: 60 1RF oxybutynin chloride 5 mg tablet 5 mg PO QDAY Qty: 90 3RF omeprazole 20 mg capsule,delayed release(DR/EC) 20 mg PO QDAY Qty: 90 2RF tamsulosin 0.4 mg capsule 0.4 mg PO DAILY Qty: 90 0RF citalopram 20 mg tablet 20 mg PO DAILY Qty: 90 0RF simvastatin 40 mg tablet 40 mg PO .Bedtime Qty: 90 0RF finasteride 5 mg tablet 5 mg PO DAILY Qty: 90 0RF Follow Up/Referrals: Terrell Conner MD [Primary Care Provider, Family Practice] Stand Alone Forms: PR Slides Info Instructions
--- NOTE | 2024-12-24 12:59 | CRLHL7_ITS ---
For Patients: As a result of the Century Cures Act, medical imaging exams and procedure reports are released immediately into your electronic medical record. You may view this report before your referring provider. If you have questions, please contact your health care provider. INDICATION: Severe mid to lower back pain, history of prostate/skin cancers TECHNIQUE: CT lumbar spine without contrast. COMPARISON: CT abdomen and pelvis with contrast 11/14/2023, MRI lumbar spine 06/02/2019. FINDINGS: Vertebrae: Grade 1 anterolisthesis of L4 on L5. Trace anterolisthesis of L3 on L4. Mild retrolisthesis of L2 on L3 and L5 on S1. No acute fracture or suspicious osseous lesion. The bones appear demineralized. Discs and facet joints: There is multilevel degenerative disc disease greatest and moderate at L1-L2 and L2-L3 with vacuum disc phenomenon. There is severe multilevel facet arthropathy most pronounced from L3-L4 to L5-S1. Extraspinal findings: Moderate atherosclerotic calcification. Suspected splenomegaly, partially imaged. IMPRESSION: 1. No acute osseous abnormality or suspicious osseous lesion within the lumbar spine. 2. Multilevel degenerative disc disease and facet arthropathy as above. Please note that all CT scans at this facility use dose modulation, iterative reconstruction, and/or weight-based dosing when appropriate to reduce radiation dose to as low as reasonably achievable. Dictated by Aliyah Hull MD @ 12/24/2024 2:00:41 PM (Electronically Signed)
[2024-12-24] MEDS: LIDOCAINE 5% PATCH 1 PATCH TRANSDERMA (13:22)
[2024-12-24] MEDS: OxyCODONE/APAP 5-325 TABLET 2 TAB PO (13:23)
[2024-12-24 14:01] VITALS: BP 117/62; PULSE 61; RESP 16; O2SAT 98
[2024-12-24 15:15] VITALS: BP 118/55; PULSE 61; RESP 16; O2SAT 93
== END 2024-12-24 15:51 | disposition home or self-care (01) ==
PROVIDERS: Emergency Provider Family Medicine; PCP Family Medicine
DX: M54.50 Low back pain, unspecified (principal); G89.29 Other chronic pain; Z79.899 Other long term (current) drug therapy
CPT/HCPCS: 72131; 99284; A9270